=== PATIENT | male | born 1985 | race Caucasian/White ===

== ENCOUNTER 2017-10-22 20:26 | Emergency (ER) | payer BC ==
[2017-10-22 20:28] VITALS: BP 161/112; PULSE 98; RESP 20; TEMP 98.4; O2SAT 99
[2017-10-22] MEDS ORDERED: TETANUS/DIPHTHERIA TOXOID ADULT 0.5 ML VIAL IM ONE (21:00)
[2017-10-22] MEDS ORDERED: LIDOCAINE HCL 1% PF 30 ML VIAL ONE (21:20)
[2017-10-22] MEDS: LIDOCAINE HCL 1% 30 ML VIAL INFIL ONE ×2 (21:22→21:24)
--- NOTE | 2017-10-22 21:29 | PD ---
HPI Chief Complaint: Injury Time Seen by Provider: 20:56 Travel History International Travel<30 days: No Contact w/Intl Traveler<30days: No Traveled to known affect area: No History of Present Illness HPI The patient is a 32-year-old [id number] male that cut his dorsal left third finger with a table saw, dado blade. The patient also cut the fingernail of the left second finger. PFSH Past Medical History Medical History: Denies Significant Hx Diminished Hearing: No Immunizations Current: Yes Tetanus Vaccination: > 5 Years Influenza Vaccination: No Past Surgical History Oral Surgery: Yes Social History Alcohol Use: No Tobacco Use: No Substance Use: No Allergies-Medications (Allergen,Severity, Reaction): Coded Allergies: No Known Allergies (Verified Allergy, Unknown, 10/22/17) Sulfa (Sulfonamide Antibiotics) (Verified Allergy, Unknown, rash, 10/22/17) Reported Meds & Prescriptions Reported Meds & Active Scripts Active No Active Prescriptions or Reported Medications Review of Systems Except as stated in HPI: all other systems reviewed are Neg Physical Exam Narrative GENERAL: Well-nourished, well-developed patient. SKIN: Focused skin assessment warm/dry. There is a heavily lacerated area from the distal phalanx of the third finger including all of the nail. The second finger has a horizontal laceration of the nail. HEAD: Normocephalic. EYES: No scleral icterus. No injection or drainage. NECK: Supple, trachea midline. No JVD or lymphadenopathy. CARDIOVASCULAR: Regular rate and rhythm without murmurs, gallops, or rubs. RESPIRATORY: Breath sounds equal bilaterally. No accessory muscle use. GASTROINTESTINAL: Abdomen soft, non-tender, nondistended. MUSCULOSKELETAL: No cyanosis, or edema. BACK: Nontender without obvious deformity. No CVA tenderness. Data Data Last Documented VS Vital Signs Date Time Temp Pulse Resp B/P (MAP) Pulse Ox O2 Delivery O2 Flow Rate FiO2 10/22/17 22:01 100 20 168/70 (102) 98 Room Air 10/22/17 20:28 98.4 Orders Orders Tetanus/Diphtheria Tox Adult (Tetanus/Di (10/22/17 21:00) Hand, Complete ([id number]) (10/22/17 ) Lidocaine 1% Inj (Xylocaine 1% Inj) (10/22/17 21:30) Lidocaine Pf 1% Inj (Xylocaine-Mpf 1% In (10/22/17 21:20) Wound Care (10/22/17 22:45) Sulfamet-Trimeth Ds 800-160 Mg (Bactrim (10/22/17 23:00) Ed Discharge Order (10/22/17 22:48) Doxycycline (Vibramycin) (10/22/17 23:00) Doxycycline (Vibramycin) (10/22/17 23:15) MDM Medical Decision Making Medical Screen Exam Complete: Yes Emergency Medical Condition: Yes Medical Record Reviewed: Yes Differential Diagnosis Laceration with fracture of tuft, laceration without fracture of tuft, loss of nail Narrative Course The patient has a heavily lacerated area over the dorsum of the left third finger which includes loss of nail. He also has fracture of the nail on the second finger on the left. These lacerations will be bandaged and the patient is referred to Dr. Villegas on Tuesday. I discussed the patient with Dr. Villegas. He is put on doxycycline. He said he was allergic to sulfa, he forgot initially that he was allergic to sulfa. Diagnosis Primary Impression: Finger laceration Additional Impression: Open fracture of tuft of distal phalanx of finger Additional Instructions: As we discussed, follow-up with Dr. Villegas on Tuesday. Take the antibiotic 1 tablet twice daily for 10 days. Med/Other Pt SpecificInfo: Prescription(s) given Scripts No Active Prescriptions or Reported Meds Disposition: 01 DISCHARGE HOME Condition: Stable Thomas Coleman MD Oct 22, 2017 21:29
[2017-10-22 22:01] VITALS: BP 168/70; PULSE 100; RESP 20; O2SAT 98
--- NOTE | 2017-10-22 22:07 | RADRPT ---
EXAM DATE/TIME: 10/22/2017 21:33 [facility] COMPARISON: No previous studies available for comparison. INDICATIONS : Laceration to hand from a saw. MEDICAL HISTORY : None. SURGICAL HISTORY : None. ENCOUNTER: Initial ACUITY: 1 day PAIN SCORE: 10/10 LOCATION: Left Hand, 3rd Digit. FINDINGS: Laceration or bony defect distal tuft third digit. No other abnormality appreciated. CONCLUSION: Laceration as above Terrell Jiang MD FACR on October 22, 2017 at 22:04 Board Certified Radiologist. This report was verified electronically.
[2017-10-22] MEDS ORDERED: SULFAMETHOXAZOLE-TRIMETHOPRIM DS 800-160 MG TAB PO ONE (23:00)
[2017-10-22] MEDS ORDERED: DOXYCYCLINE HYCLATE 100 MG CAP PO ONE ×2 (23:00→23:15)
[2017-10-22] MEDS ORDERED: DOXY100C PO (23:57)
[2017-10-22] MEDS ORDERED: IBUP1TAB7 PO (23:58)
[2017-10-23 00:08] VITALS: BP 166/92
[2017-10-25] MEDS ORDERED: IBUP1TAB7 PO (11:05)
[2017-10-25] MEDS ORDERED: HYDR-3111 PO (11:05)
== END 2017-10-23 00:10 | disposition home or self-care (01) ==
LOC: PHEFT 20:26
DX: S62.633B Displaced fracture of distal phalanx of left middle finger, initial encounter for open fracture (principal); W31.2XXA Contact with powered woodworking and forming machines, initial encounter; Z23 Encounter for immunization
CPT/HCPCS: 73130; 90471; 90714

== ENCOUNTER → 2017-10-25 | Day surgery (SDC) | payer BC ==
[~2017-10-25] VITALS: Ht 190.5 cm; Wt 125.0 kg
[~2017-10-25] MED LIST: BUPIVACAINE HCL PF 0.25% 30 ML VIAL ONE; BUPIVACAINE HCL PF 0.5% 10 ML VIAL ONE; CHLORHEXIDINE GLUCONATE 2 % 1 PACK (2 CLOTHS) TOPICAL PRN; DEXT 5%-NACL 0.45% 1000 ML INJ 1,000 ML IV SCH; DOXY100C PO; FAMOTIDINE 20 MG/2 ML VIAL ONE; HYDR-3111 PO; IBUP1TAB7 PO; IBUPROFEN 400 MG TAB PO PRN; LACTATED RINGER'S 1000 ML IV PRN; LIDOCAINE HCL 2% 50 ML VIAL ONE; METOPROLOL TARTRATE 25 MG TAB PO PRN; MIDAZOLAM HCL 2 MG/2 ML VIAL ONE; ONDANSETRON HCL 4 MG/2 ML VIAL ONE; POVIDONE IODINE 5% (ANTISEPSIS KIT) 4 APPLICATIONS EACH NARE PRN; SODIUM CHLORID 0.9% 500 ML IV PRN; ceFAZolin 2 GM PREMIX 50 ML IV SCH
--- NOTE | 2017-10-25 11:02 | HHI.PR ---
Immediate Post Op Note Procedure Date: Oct 25, 2017 Pre Op Diagnosis: (1) Finger laceration (2) Open fracture of tuft of distal phalanx of finger Post Op Diagnosis: (1) Finger laceration (2) Open fracture of tuft of distal phalanx of finger Surgeon: Krysten Villegas Nuclear Medicine Tech(s): None Procedure: Excisional debridement of the left middle finger. FTSG to left middle finger. Repair complex laceration to the left index finger. Anesthesia: General Drains: None Tourniquet time (min at mmHg) 100 minutes at 220 mm Hg Patient to: PACU Patient Condition: Good Date/Time of Procedure: SEE SURGICAL CARE RECORD Krysten Villegas MD Oct 25, 2017 11:02
--- NOTE | 2017-10-25 11:34 | MP ---
cc: Krysten Villegas MD DATE OF OPERATION: 10/25/2017 PREOPERATIVE DIAGNOSES: 1. Open fracture distal of the tuft of the distal phalanx of the left middle finger. 2. Loss of bone, skin, subcutaneous tissue nail and nail plate of the distal phalanx dorsally left middle finger. 3. Table saw injury to the left index finger. POSTOPERATIVE DIAGNOSES: 1. Open fracture distal of the tuft of the distal phalanx of the left middle finger. 2. Loss of bone, skin, subcutaneous tissue nail and nail plate of the distal phalanx dorsally left middle finger. 3. Table saw injury to the left index finger. PROCEDURE PERFORMED: 1. Excisional debridement of the index finger and middle fingers including bone and subcutaneous tissue. 2. Complex repair of the left index finger, 1.5 cm in length. 3. Full-thickness skin graft 2 cm x 1.5 cm in measurement, dimensions to the distal phalanx of the left middle finger. ANESTHESIA: General. SURGEON: Krysten Villegas MD INDICATIONS: A 32-year-old male with injury to the finger as noted above. FINDINGS: AT the completion of the procedure, the index finger had been repaired with sutures after the debridement and the middle finger was repaired after debridement with a full-thickness skin graft held in place with a bolus. TOURNIQUET TIME: 100 minutes. PROCEDURE: The patient was seen preoperatively where the sites and side were identified and marked. The patient was then taken to the operating room and placed in a supine position. His identity was checked against the arm band and at the consent form, site and side confirmed. timeout called prior to beginning the procedure. The left upper extremity was prepped with Hibiclens and draped in the usual sterile fashion. The area to be incised was outlined with a marking pen in the usual sterile fashion. Attention was first turned to the middle finger where the area was excisionally debrided of bone fragments, clot, and soft tissue, which was devitalized, was removed with sharp dissection. Curet was used also to remove debris. The area was then measured. The defect was noted to be 2 cm x 1.5 cm in greatest dimension. Attention was then turned to the index finger which was excisionally debrided sharply and repaired with 5-0 nylon suture material through the nail plate, into the nail plate which had been injured but was still attached. In addition the soft tissue was also repaired with the 5-0 nylon suture material. Gloves and instruments were changed and a skin graft was obtained measuring approximately 3 cm x 2 cm in greatest dimension from the inner aspect of the left arm. Incision was made down through the skin, down to the subcutaneous tissue and the skin was then harvested sharply. Fat was removed from the base. Wide undermining was carried down and the wound was closed with 4-0 Vicryl then a 4-0 Prolene to the skin. Bupivacaine 0.25% plain was injected at the beginning of the procedure and to all the areas that were to be operated on, as well as locally in the upper arm and also into the hand as digital blocks. The skin was then placed into the defect and sewn into place with sutures along the edge. There was a part of the bone missing and horizontal mattress sutures were placed in order to have the skin against the soft tissue. Once the skin was in place several pie crusting incisions were made to allow for drainage and povidone iodine ointment was then applied along with Telfa and Adaptic and the cotton bolus. The sutures which had been left long along the edge were then tied to hold the bolus in place. The povidone iodine was also placed on the index finger, as well as to the donor site which was then covered with Tegaderm with Telfa in it. The tourniquet was released. Pressure was applied and, when there was no evidence of oozing, a dressing was applied using 4 x 4's hand wrap and a palmar-based splint. The patient was then taken from the operating room to the recovery room in satisfactory condition, having tolerated the procedure well. Postoperative instructions include keeping the arm elevated, keeping the area clean and dry and returning in several days for followup. He was given a prescription for Vicodin 5/300 as well as Ibuprofen 800 mg every 8 hours as needed for pain. MD MARC Barrios/CAITLIN , 11:12 AM , 11:34 AM [facility]
[2017-10-25 12:45] VITALS: BP 130/71; PULSE 85; RESP 16; TEMP 98.2; O2SAT 97
== END | disposition home or self-care (01) ==
LOC: PHSDC 07:05
PROVIDERS: ATTEND Specialist
DX: S61.311A Laceration without foreign body of left index finger with damage to nail, initial encounter (principal); S61.313A Laceration without foreign body of left middle finger with damage to nail, initial encounter; J45.909 Unspecified asthma, uncomplicated; W31.2XXA Contact with powered woodworking and forming machines, initial encounter
CPT/HCPCS: 00400; 13131; 15240; J0690; J2250; J2405; J3010; J7120